=== PATIENT | male | born 1955 | race Caucasian/White ===

== ENCOUNTER 2020-01-19 02:55 | Emergency (ER) | payer OTHER ==
[~2020-01-19] VITALS: Ht 182.9 cm; Wt 101.2 kg
[~2020-01-19 02:55] MED LIST: APLICARE ANTIS118 M3 TOP; BACO TOP; BACTRIM DS1 TAB PO; FLO4 PO; NEU100 PO
[2020-01-19 03:02] VITALS: Ht 182.9 cm; Wt 101.2 kg
[2020-01-19 04:19] LABS: BASOPHIL % 0.4 % (0-2); PLATELET COUNT 260 x10^3mcL (130-400)
[2020-01-19 04:31] LABS: CALCIUM 8.7 mg/dL (8.5-10.1); CARBON DIOXIDE 31.2 mmol/L (21-32); CHLORIDE SERUM 106 mmol/L (98-107); CREATININE SERUM 1.1 mg/dL (0.7-1.3); GFR1 > 60 mL/min; GLUCOSE SERUM 92 mg/dL (74-106); MAGNESIUM 2.1 mg/dL (1.8-2.4); POTASSIUM SERUM 4.1 mmol/L (3.5-5.1); SODIUM SERUM 143 mmol/L (136-145)
[2020-01-19 05:24] VITALS: BP 127/81
== END 2020-01-19 05:24 | disposition home or self-care (01) ==
LOC: ED 02:55
PROVIDERS: Emergency Medicine
DX: L03.113 Cellulitis of right upper limb (principal); L03.311 Cellulitis of abdominal wall; I10 Essential (primary) hypertension; E11.9 Type 2 diabetes mellitus without complications